=== PATIENT | female | born 1980 | race Two or more races ===

== ENCOUNTER 2025-10-07 12:30 | Inpatient (IN) | payer OTHER ==
[~2025-10-07] VITALS: Ht 170.2 cm; Wt 79.4 kg
[2025-10-07] MEDS ORDERED: COZAAR50 MG (13:36)
--- NOTE | 2025-10-07 13:37 | NUR ---
SE RECIBE FEMINA ALERTA Y ORIENTADA POR YUMIKO ESFERAS, AMBULANDO. REFIERE DOLOR ABDOMINAL EN CUADRANTE SUPERIOR DERECHO DESDE SAMINA.
[2025-10-07] MEDS ORDERED: ONDANSETRON HCL 2 MG/ML VIAL IV ONE (14:15)
[2025-10-07] MEDS ORDERED: 0.9 % SODIUM CHLORIDE 1,000 ML IV ONE (14:15)
[2025-10-07] MEDS ORDERED: FAMOTIDINE/PF 20 MG/2 ML VIAL IV ONE (14:15)
[2025-10-07] MEDS ORDERED: FAMOTIDINE/PF 20 MG/2 ML VIAL ONE (15:28)
[2025-10-07] MEDS ORDERED: ONDANSETRON HCL 2 MG/ML VIAL ONE (15:28)
[2025-10-07] MEDS ORDERED: METHYLPREDNISOLONE SOD SUCC 125 MG VIAL IV ONE (16:45)
[2025-10-07] MEDS ORDERED: DIPHENHYDRAMINE HCL 50 MG/ML VIAL 1ML IV ONE (16:45)
[2025-10-07 16:48] LABS: BASO % 0.5 % (0.1-1.2); EOS # 0.16 (0.04-0.54); EOS % 1.6 % (0.7-7.0); LYMPH # 2.68 (1.18-3.74); LYMPH % 27.2 % (19.3-53.1); MEAN PLATELET VOLUME 10.50 fl (9.4-12.4); MONO # 0.72 (0.24-0.82); MONO % 7.3 % (4.7-12.5); NEUT # 6.22 (1.56-6.13); NEUT % 63.2 % (34.0-71.1); RED CELL DISTRIBUTION WIDTH 11.9 % (11.6-14.4)
[2025-10-07 17:08] LABS: INR 1.0
[2025-10-07 17:18] LABS: ALT/SGPT 38.0 U/L (12-78); AST/SGOT 20.0 U/L (15-37); BILIRUBIN TOTAL 1.8 mg/dL (0.3-1.2); BUN CREA RATIO 18.0 (7.0-25.0); CREATININE SERUM 0.67 mg/dL (0.55-1.02); GFR 95.18; GLOBULINA 4.0 G/DL (2.4-3.5); GLUCOSE FASTING 99.0 mg/dL (65-100); OSMOLALITY SERUM 277.0 MOSM/KG (275-295)
[2025-10-07 17:57] LABS: URINE APPEARANCE Clear; URINE BILIRRUBIN Negative (NEGATIVE); URINE BLOOD Negative; URINE COLOR Yellow; URINE GLUCOSE Negative (NEGATIVE); URINE KETONE Negative (NEGATIVE); URINE LEUKOCYTE Negative; URINE NITRATE Negative; URINE PROTEIN Negative (NEGATIVE); URINE UROBILINOGEN 0.2 E.U./dl
[2025-10-07 18:01] LABS: URINE BACTERIA 221.9 uL (0.0-1933); URINE EPITHELIAL CELLS 4.4 uL (0.0-38.8); URINE RBC 7.0 uL (0.0-20.8); URINE WBC 2.1 uL (0.0-23.2)
[2025-10-07 18:04] LABS: URINE CAST 0.73 uL (0.0-1.40)
--- NOTE | 2025-10-07 18:05 | NUR ---
KELVIN LAMBERT EDUCA ACERCA DE [place] ORDENADO, CANALIZA Y COLECTA MUESTRAS DE LABORATORIO MEDIANTE MEDIDAS ASEPTICAS. ADMINISTRA MEDICAMENTOS HITESH ORDEN MEDICA.
[2025-10-07 18:11] LABS: BILIRUBIN TOTAL 1.69 mg/dL (0.3-1.2); BILIRUBIN,CONJUGATED 0.25 mg/dL (0.0-0.2)
[2025-10-07] MEDS ORDERED: METHYLPREDNISOLONE SOD SUCC 125 MG VIAL ONE (18:29)
[2025-10-07] MEDS ORDERED: DIPHENHYDRAMINE HCL 50 MG/ML VIAL 1ML ONE (18:29)
[2025-10-07] MEDS ORDERED: KETOROLAC TROMETHAMINE 30 MG VIAL IV ONE (20:00)
[2025-10-07] MEDS ORDERED: PIPERACILLIN/TAZOBACTAM SODIUM 3.375 GM VIAL IV ONE ×2 (20:00→20:42)
[2025-10-07] MEDS ORDERED: 0.9 % SODIUM CHLORIDE 1,000 ML IV SCH (20:15)
[2025-10-07] MEDS ORDERED: ACETAMINOPHEN 500 MG GEL..CAP PO PRN (20:30)
[2025-10-07] MEDS ORDERED: ONDANSETRON HCL 4 MG in 0.9 % SODIUM CHLORIDE 50 ML IV PRN (20:30)
[2025-10-07] MEDS ORDERED: KETOROLAC TROMETHAMINE 30 MG VIAL ONE (20:42)
[2025-10-07] MEDS ORDERED: MORPHINE SULFATE 4 MG/ML CARTRIDGE IV SCH (21:00)
[2025-10-08] MEDS ORDERED: PIPERACILLIN/TAZOBACTAM SODIUM 3.375 GM in DEXTROSE 5 % IN WATER 100 ML IV SCH
[2025-10-08 03:11] VITALS: BP 120/70; O2SAT 99
[2025-10-08 08:00] VITALS: BP 103/66; O2SAT 98
[2025-10-08] MEDS ORDERED: FAMOTIDINE/PF 20 MG in 0.9 % SODIUM CHLORIDE 8 ML IV PUSH SCH (09:00)
[2025-10-08] MEDS ORDERED: LOSARTAN POTASSIUM 50 MG TABLET PO SCH (09:00)
[2025-10-08] MEDS ORDERED: SUGAMMADEX SODIUM 200 MG/2 ML VIAL IV ONE (11:37)
[2025-10-08 16:02] VITALS: BP 110/68; O2SAT 98
[2025-10-09 00:15] VITALS: BP 96/62; O2SAT 98
[2025-10-09 08:00] VITALS: BP 102/63; O2SAT 97
== END 2025-10-09 15:33 | disposition home or self-care (01) | DRG 399 ==
LOC: ER 12:31 → SEC-K 22:07 → SURH 22:07
PROVIDERS: Emergency Medicine; General Practice; Surgery; ADMIT Internal Medicine; ATTEND Internal Medicine
PROC: BW21YZZ Computerized Tomography (CT Scan) of Abdomen and Pelvis using Other Contrast (ICD-10-PCS; 2025-10-07)
PROC: 0DTJ0ZZ Resection of Appendix, Open Approach (ICD-10-PCS; principal; 2025-10-08 10:00)
DX: K35.890 Other acute appendicitis without perforation or gangrene (principal)